=== PATIENT | male | born 1940 | race Caucasian/White ===

== ENCOUNTER 2019-09-12 07:24 | Day surgery (SDC) | payer MEDICARE, MEDICAID ==
[~2019-09-12] VITALS: Ht 185.4 cm; Wt 102.3 kg
[2019-09-12] VITALS (9 sets, daily range): BP systolic 124–154; BP diastolic 79–95
[2019-09-12] MEDS ORDERED: midazolam 2 mg/2 ml injection ONE ×2 (07:43→08:33)
[2019-09-12] MEDS ORDERED: LIDOcaine 1% (10mg/ml)w/preservative injection 20ml MDV ONE (07:43)
[2019-09-12] MEDS ORDERED: fentaNYL/PF 50MCG/1 ML 2ML syringe ONE (07:43)
[2019-09-12] MEDS ORDERED: iohexol 350MG/ML 100ml bottle IV ONE (07:43)
[2019-09-12] MEDS ORDERED: LORazepam 0.5 MG tablet PO PRN (07:55)
[2019-09-12] MEDS ORDERED: normal saline 1,000 ML IV SCH (07:55)
[2019-09-12] MEDS ORDERED: diphenhydrAMINE 25mg capsule PO PRN (07:55)
[2019-09-12] MEDS ORDERED: TEST200V10 IM (07:56)
[2019-09-12] MEDS ORDERED: TEMA30CA PO (07:56)
[2019-09-12] MEDS ORDERED: LEVO100T9 PO (07:56)
[2019-09-12] MEDS ORDERED: VENL-190 PO (07:56)
[2019-09-12] MEDS ORDERED: TRAZ150T78 PO (07:56)
[2019-09-12] MEDS ORDERED: METH20TA PO (07:56)
[2019-09-12] MEDS ORDERED: QUET25TA34 PO (07:56)
[2019-09-12] MEDS ORDERED: heparin 1,000unit/ml 10ml vial 10 ML ONE (08:22)
[2019-09-12] MEDS ORDERED: nitroGLYCERIN-Tridil 50MG/D5W 250 ML IV ONE (08:22)
[2019-09-12] MEDS ORDERED: verapamil 2.5 mg/ml inj IV ONE (08:22)
== END 2019-09-12 11:45 | disposition home or self-care (01) ==
LOC: SSTAY O 07:24
PROVIDERS: ATTEND Internal Medicine Interventional Cardiology
DX: R07.9 Chest pain, unspecified (principal); I25.10 Atherosclerotic heart disease of native coronary artery without angina pectoris; E03.9 Hypothyroidism, unspecified; Z79.899 Other long term (current) drug therapy
CPT/HCPCS: 93005; 93458; 99152; 99153; C1769; C1894; J1644; J2001; J2250; J3010; J7030; Q0163; Q9967; A4620; A5120; J3490